=== PATIENT | female | born 1980 | race Caucasian/White ===

== ENCOUNTER → 2016-09-26 | Outpatient (CLI) | payer BC | LOC: MW.CHFP 10:21 | PROVIDERS: ATTEND Emergency Medicine | DX: J06.9 Acute upper respiratory infection, unspecified (principal); R53.83 Other fatigue; J02.9 Acute pharyngitis, unspecified; E53.8 Deficiency of other specified B group vitamins | CPT/HCPCS: 36415; 82607; 85025; 87070 ==

== ENCOUNTER → 2017-02-01 | Day surgery (SDC) | payer BC ==
--- NOTE | 2017-02-01 11:26 | PCM.PRNOTE ---
- Free Text/Narrative Note: Lumbar Spinal Tap Procedure note: Consult from Dr. Perez for spinal tap procedure to rule out West Nile Virus. Pt consulted on risks and benefits of procedure and consented to proceed. Sterile prep and drape with kit iodine to L4-L5 area of back. 3 ml of 1% Lidocaine infused to region. 22 g needle inserted until pop was felt and opening pressures were obtained with sterile kit. Opening pressure was assessed to be 20.5 cm H20. Tubes were filled x4 with 1-2 ml of cerebrospinal fluid. Fluid appeared clear. Pt tolerated procedure well and was laid down following with dressing applied to site. Total time for procedure was 20 minutes with consult and tap.
== END ==
LOC: MW.SDS 10:03 → MW.TELEMED 10:03
PROVIDERS: ATTEND Emergency Medicine
DX: R51 Headache (principal); R03.0 Elevated blood-pressure reading, without diagnosis of hypertension; Z79.899 Other long term (current) drug therapy
CPT/HCPCS: 62270

== ENCOUNTER 2017-10-08 09:08 | Emergency (ER) | payer BC ==
--- NOTE | 2017-10-08 09:30 | EDM.PDOC ---
ED HPI GENERAL MEDICAL PROBLEM - General Chief Complaint: Genitourinary Problem Stated Complaint: BLADDER INFECTION Time Seen by Provider: 10/08/17 09:30 - History of Present Illness INITIAL COMMENTS - FREE TEXT/NARRATIVE: HISTORY AND PHYSICAL: History of present illness: Patient is a 37-year-old female presents with concern of Review of systems: As per history of present illness and below otherwise all systems reviewed and negative. Past medical history: As per history of present illness and as reviewed below otherwise noncontributory. Surgical history: As per history of present illness and as reviewed below otherwise noncontributory. Social history: No reported history of drug or alcohol abuse. Family history: As per history of present illness and as reviewed below otherwise noncontributory. Physical exam: HEENT: Atraumatic, normocephalic, pupils reactive, negative for conjunctival pallor or scleral icterus, mucous membranes moist, throat clear, neck supple, nontender, trachea midline. Lungs: Clear to auscultation, breath sounds equal bilaterally, chest nontender. Heart: S1S2, regular, negative for clicks, rubs, or JVD. Abdomen: Soft, nondistended, nontender. Negative for masses or hepatosplenomegaly. Negative for costovertebral tenderness. Pelvis: Stable nontender. Genitourinary: Deferred. Rectal: Deferred. Extremities: Atraumatic, negative for cords or calf pain. Neurovascular unremarkable. Neuro: Awake, alert, oriented. Cranial nerves II through XII unremarkable. Cerebellum unremarkable. Motor and sensory unremarkable throughout. Exam nonfocal. Diagnostics: UA urine culture and sensitivity Therapeutics: None Impression: #1 urinary tract infection Definitive disposition and diagnosis as appropriate pending reevaluation and review of above. Back Pain Score (Numeric/FACES): 5 - Related Data Allergies Allergy/AdvReac Type Severity Reaction Status Date / Time No Known Allergies Allergy Verified 10/08/17 09:25 Home Meds: Home Meds Multivitamin [Multivitamins] 1 tab PO DAILY 10/20/14 [History] Estradiol [Minivelle] 1 each TD 10/08/17 [History] Past Medical History HEENT History: Reports: Impaired Vision Other HEENT History: wears glasses Cardiovascular History: Reports: None Other Cardiovascular History: hx of palpitations, not recent. able to exercise without any dyspnea on exertion. Respiratory History: Reports: None Gastrointestinal History: Reports: None Other Gastrointestinal History: hx of acute pancreatitis , uses gluten free diet Genitourinary History: Reports: None [employer] History: Reports: Other OB/BYN History: chronic pelvic pain Musculoskeletal History: Reports: Back Pain, Chronic Other Musculoskeletal History: chronic back and pelvic pain, leg fatigue Neurological History: Reports: None Other Neuro History: hx of discooridination Psychiatric History: Reports: None Endocrine/Metabolic History: Reports: None Hematologic History: Reports: None Immunologic History: Reports: None Oncologic (Cancer) History: Reports: None Dermatologic History: Reports: None - Past Surgical History Female Surgical History: Reports: Section, Hysterectomy ED ROS GENERAL - Review of Systems Review Of Systems: ROS reveals no pertinent complaints other than HPI. ED EXAM, GENERAL - Physical Exam Exam: See Below (See dictation) Course - Vital Signs Last Recorded V/S: Last Vital Signs Temp 36.3 C 10/08/17 09:23 Pulse 77 10/08/17 09:23 Resp 16 10/08/17 09:23 BP 127/86 10/08/17 09:23 Pulse Ox 100 10/08/17 09:23 - Orders/Labs/Meds Orders: Active Orders 24 hr Category Date Time Status CULTURE URINE [RM] Stat Lab 10/08/17 09:10 Ordered URINALYSIS W/MICROSCOPIC [UA W/MICROSCOPIC] [URIN] Stat Lab 10/08/17 09:10 Ordered Departure - Departure Time of Disposition: 09:29 Disposition: Home, Self-Care 01 Condition: Good Clinical Impression: UTI, Urinary tract infectious disease - Discharge Information Additional Instructions: The following information is given to patients seen in the emergency department who are being discharged to home. This information is to outline your options for follow-up care. We provide all patients seen in our emergency department with a follow-up referral. The need for follow-up, as well as the timing and circumstances, are variable depending upon the specifics of your emergency department visit. If you don't have a primary care physician on staff, we will provide you with a referral. We always advise you to contact your personal physician following an emergency department visit to inform them of the circumstance of the visit and for follow-up with them and/or the need for any referrals to a consulting specialist. The emergency department will also refer you to a specialist when appropriate. This referral assures that you have the opportunity for followup care with a specialist. All of these measure are taken in an effort to provide you with optimal care, which includes your followup. Under all circumstances we always encourage you to contact your private physician who remains a resource for coordinating your care. When calling for followup care, please make the office aware that this follow-up is from your recent emergency room visit. If for any reason you are refused follow-up, please contact the [facility] emergency department at and asked to speak to the emergency department charge nurse. Cipro Pyridium as prescribed follow-up primary medical doctor push fluids return as needed as discussed[] - My Orders Last 24 Hours: My Active Orders 10/08/17 09:10 CULTURE URINE [RM] Stat URINALYSIS W/MICROSCOPIC [UA W/MICROSCOPIC] [URIN] Stat - Assessment/Plan Last 24 Hours: My Active Orders 10/08/17 09:10 CULTURE URINE [RM] Stat URINALYSIS W/MICROSCOPIC [UA W/MICROSCOPIC] [URIN] Stat
[2017-10-08 10:26] VITALS: BP 140/84
== END 2017-10-08 10:25 | disposition home or self-care (01) ==
LOC: MW.ED 09:08
DX: N39.0 Urinary tract infection, site not specified (principal); Z79.899 Other long term (current) drug therapy
CPT/HCPCS: 81001; 87086; 87088; 87186; 99283

== ENCOUNTER 2021-09-18 16:31 | Emergency (ER) | payer BC ==
[2021-09-18] MEDS ORDERED: Sodium Chloride 0.9% 1,000 ML IV ONE (16:50)
[2021-09-18] MEDS ORDERED: Ketorolac 30 MG/ML SDV IVPUSH ONE (16:50)
[2021-09-18] MEDS ORDERED: Ondansetron 4 MG/2 ML SDV IVPUSH ONE (16:50)
[2021-09-18] MEDS ORDERED: Alum Hydro/Mag Hydro/Simeth XS 15 ML, Metoclopramide 5 MG, Lidocaine 2% 5 ML PO ONE ×3 (16:50)
[2021-09-18 17:45] LABS: BLOOD UREA NITROGEN,BUN 16 mg/dL (7.0-18.0); CARBON DIOXIDE,CO2 26.5 mmol/L (21.0-32.0); CHLORIDE,CL 104 mmol/L (98-107); GLUCOSE RANDOM 94 mg/dL (74-106); LIPASE 95 U/L (73-393); SODIUM,NA 142 mmol/L (136-145)
[2021-09-18 20:14] VITALS: BP 127/85; PULSE 72
== END 2021-09-18 20:13 | disposition home or self-care (01) ==
LOC: MW.ED 16:31
DX: K29.70 Gastritis, unspecified, without bleeding (principal); Z79.899 Other long term (current) drug therapy; Z90.710 Acquired absence of both cervix and uterus
CPT/HCPCS: 36415; 80053; 81003; 83690; 85025; 93005; 96361; 96374; 96375; 99284-25; A9270-GY; J1885; J2405; J7030

== ENCOUNTER 2021-11-04 07:11 | Day surgery (SDC) | payer BC ==
[~2021-11-04 07:11] MED LIST: Lactated Ringers 1,000 ML IV SCH
[2021-11-04] MEDS ORDERED: Propofol 200 MG/20 ML SDV ONE (08:02)
[2021-11-04] MEDS ORDERED: fentaNYL 100 MCG/2 ML SDV ONE (08:03)
[2021-11-04] MEDS ORDERED: Lidocaine 2% 5 ML SDV ONE (08:03)
[2021-11-04] MEDS ORDERED: Ondansetron 4 MG/2 ML SDV ONE (08:03)
[2021-11-04 09:10] VITALS: PULSE 83
[2021-11-04 11:33] VITALS: BP 136/73
== END 2021-11-04 09:30 | disposition home or self-care (01) ==
LOC: MW.SDS 07:11
PROVIDERS: ATTEND Surgery
DX: R10.13 Epigastric pain (principal); H54.7 Unspecified visual loss; Z79.899 Other long term (current) drug therapy
CPT/HCPCS: 43239; J2405; J2704; J3010; J7120; 00731